=== PATIENT | female | born 1950 | race Caucasian/White ===

== ENCOUNTER 2017-07-30 12:33 | Outpatient (CLI) ==
[2017-07-30 13:05] LABS: BASOPHILS % (AUTO) 0.6 % (0.0-3.0); EOSINOPHILS # (AUTO) 0.2 K/ul (0.0-0.7); EOSINOPHILS % (AUTO) 4.5 % (0.0-7.0); HEMATOCRIT 42.2 % (37.0-47.0); HEMOGLOBIN 14.5 g/dl (12.0-16.0); IMMATURE GRANULOCYTE % (AUTO) 0.2 % (0.0-5.0); LYMPHOCYTES % (AUTO) 20.1 (10.0-50.0); MEAN CORPUSCULAR HEMOGLOBIN 31.4 pg (27.0-31.0); MEAN CORPUSCULAR HGB CONC 34.4 (31.8-35.4); MEAN CORPUSCULAR VOLUME 91.3 fl (81.0-99.0); MONOCYTES # (AUTO) 0.3 K/uL (0.4-2.0); MONOCYTES % (AUTO) 5.5 (0-10); NEUTROPHILS # (AUTO) 3.4 K/ul (2.0-6.9); NEUTROPHILS % (AUTO) 69.1; PLATELET COUNT 230 10^3/uL (140-440); RED BLOOD COUNT 4.62 10^6/ul (4.20-5.40); WHITE BLOOD COUNT 4.92 K/ul (4.6-10.2)
[2017-07-30 13:35] LABS: ALBUMIN/GLOBULIN RATIO 0.93; ANION GAP 13.1; BILIRUBIN,TOTAL 0.53 mg/dL (0.00-1.20); BUN/CREATININE RATIO 22.61; CALCIUM 9.9 mg/dL (8.2-10.2); CREATININE 0.84 mg/dL (0.60-1.30); POTASSIUM 4.1 mmol/L (3.5-5.10); TOTAL PROTEIN 8.3 g/dL (5.8-8.1)
== END 2017-07-30 12:34 | disposition home or self-care (01) ==
LOC: EDBD → LAB 12:33
PROVIDERS: ATTEND Nurse Practitioner Family
DX: Z00.00 Encounter for general adult medical examination without abnormal findings (principal)
CPT/HCPCS: 36415; 80053; 80061; 84443; 85025

== ENCOUNTER 2017-08-01 10:10 | Outpatient (CLI) ==
--- NOTE | 2017-08-04 09:14 | MAMMO ---
EXAM: Bilateral digital screening mammogram (2-D and 3-D) History: Baseline screening Findings: MLO and CC views of bilateral breasts demonstrate scattered fibroglandular breast parenchy ma. Benign bilateral breast calcifications. There are no dominant masses, no suspicious microcalcif ications and no architectural distortions. CAD was reviewed by the radiologist. Tomosynthesis was p erformed. Impression: Benign mammogram. Recommend followup routine screening mammography in 1 year. BIRADS 2
== END 2017-08-01 10:11 | disposition home or self-care (01) ==
LOC: EDBD 10:10 → RAD 10:10
PROVIDERS: ATTEND Nurse Practitioner Family
DX: Z12.31 Encounter for screening mammogram for malignant neoplasm of breast (principal)
CPT/HCPCS: 77067

== ENCOUNTER 2018-02-02 13:47 | Outpatient (CLI) | END 2018-02-02 13:48 | disposition home or self-care (01) | LOC: LAB 13:47 | PROVIDERS: ATTEND Nurse Practitioner Family | DX: E78.00 Pure hypercholesterolemia, unspecified (principal); I10 Essential (primary) hypertension | CPT/HCPCS: 36415; 80053; 80061 ==

== ENCOUNTER 2018-02-05 08:53 | Outpatient (CLI) | payer OTHER ==
--- NOTE | 2018-02-05 10:26 | CT ---
EXAM: CT scan abdomen pelvis with contrast HISTORY: Upper abdominal pain COMPARISON: None. FINDINGS: Contiguous axial images obtained through the abdomen pelvis following uneventful administr ation intravenous contrast utilizing 5-mm collimation. Sagittal and coronal reconstructions were jose l ged and reviewed.. There is minimal atelectasis at the right lung base. There has been prior cholec ystectomy. The common bile duct measures 7 mm. There is a 2 mm hypoattenuating lesion within the th ere is a 10 mm solid nodule posteriorly within the dome of the liver. Benign granulomatous changes a re seen within the spleen. The pancreas and adrenal glands have normal enhanced CT appearance. Athe rosclerotic changes are seen involving the aorta without aneurysm formation. Scarring is noted infer iorly about the right kidney.. The left kidney is seen within the right pelvis. There is diverticul osis without diverticulitis.. There is normal bladder. There is no free fluid. IMPRESSION: Status post cholecystectomy with prominent common bile duct likely on a postcholecystectomy basis. Solid nodule posteriorly within the liver which merits further evaluation.. Tiny 2 mm nodule is seen within the dome region. ASVD without aneurysm. Scarring lower pole right kidney. 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 Diverticulosis without diverticulitis
== END 2018-02-05 08:54 | disposition home or self-care (01) ==
LOC: RAD 08:53
PROVIDERS: ATTEND Nurse Practitioner Family
DX: R10.9 Unspecified abdominal pain (principal); K43.9 Ventral hernia without obstruction or gangrene

== ENCOUNTER 2018-02-23 08:14 | Outpatient (CLI) ==
--- NOTE | 2018-02-23 09:14 | US ---
EXAM: Complete abdominal ultrasound. History: Liver disease. Comparison: CT abdomen pelvis 02/05/2018 Technique: Multiple sonographic images through the abdomen were obtained. Color duplex Doppler was used to interrogate vascular flow. Findings: The liver is not enlarged. No liver lesions are identified sonographically. There is ante grade flow within the main portal vein. No abdominal ascites. Status post cholecystectomy. Common bile duct measures 0.5 cm in caliber. Visualized abdominal aorta and IVC demonstrate normal caliber. The visualized pancreas demonstrates no gross abnormality. Spleen is not enlarged. Calcified gran ulomas are seen within the spleen. Ectopic left kidney seen in the right pelvis measuring 9.4 cm in long length without evidence for hyd ronephrosis, mass or shadowing calculus. The right kidney measures 11.1 cm in long length without evidence for hydronephrosis, mass or shadowi ng calculus. Circumferential wall thickening of the bladder. Impression: 1. No focal liver lesions identified sonographically. 2. Status post cholecystectomy. 3. Ectopic left kidney seen in the pelvis with no acute findings. 4. Circumferential wall thickening of the bladder. Correlate for cystitis.
== END 2018-02-23 08:15 | disposition home or self-care (01) ==
LOC: RAD 08:14
PROVIDERS: ATTEND Nurse Practitioner Family
DX: K76.9 Liver disease, unspecified (principal); K43.9 Ventral hernia without obstruction or gangrene

== ENCOUNTER 2018-03-29 14:59 | Emergency (ER) | payer OTHER ==
[2018-03-29 15:04] VITALS: BP 173/80; TEMP 96.8; BMI 23.5
--- NOTE | 2018-03-29 15:36 | ED.PDOC ---
General ED Provider: Dr. ALEKSANDRA GAMING Chief Complaint: Urinary Problem Stated Complaint: Burning with urination:Had to leave work Friday night due to urinary symptoms which have persisted and worsened today. Time Seen by Physician: 15:15 Mode of Arrival: Walk-In Information Source: Patient Exam Limitations: No limitations Primary Care Provider: [facility] Nursing and Triage Documentation Reviewed and Agree: Yes Reviewed sepsis parameters & appropriate labs ordered?: Yes System Inflammatory Response Syndrome: Not Applicable Sepsis Protocol: For patient's 13 years and over: Temp is 96.8 and below OR 101 and greater Pulse >90 BPM Resp >20/minute Acutely Altered Mental Status Are patient's symptoms suggestive of a new infection, such as: -Pneumonia -Skin, Soft Tissue -Endocarditis -UTI -Bone, Joint Infection -Implantable Device -Acute Abdominal Infection -Wound Infection -Meningitis -Blood Stream Catheter Infection -Unknown System Inflammatory Response Syndrome: Not Applicable Complaint Exam - UTI Female Complaint/Exam Patient Complains of: Reports: Painful urination Onset/Duration: This past Friday evening. States her symptoms similar to past infections Symptoms Are: Still present Timing: Constant Initial Severity: Severe Current Severity: Moderate Location of Pain: Reports: None Associated Signs and Symptoms: Denies: Fever, Chills, Flank pain, Dyspareunia, Vaginal discharge CVA Tenderness: No Suprapubic Tenderness: Yes Differential Diagnoses: Bladder Dysfunction, Candidiasis, Cystitis, Other (UTI) Review of Systems - Review Of Systems Constitutional: Reports: No symptoms Eyes: Reports: No symptoms Ears, Nose, Mouth, Throat: Reports: No symptoms Respiratory: Reports: No symptoms Cardiac: Reports: No symptoms GI: Reports: No symptoms : Reports: No symptoms, Burning, Frequency, Urgency Musculoskeletal: Reports: No symptoms Skin: Reports: No symptoms Neurological: Reports: No symptoms Endocrine: Reports: No symptoms Hematologic/Lymphatic: Reports: No symptoms All Other Systems: Reviewed and Negative Past Medical History - Past Medical History Previously Healthy: Yes Endocrine: Reports: None Cardiovascular: Reports: Hypertension, Other (palpitations) Respiratory: Reports: Other (URI) Hematological: Reports: None Gastrointestinal: Reports: Other (hernia) Genitourinary: Reports: UTI Neuro/Psych: Reports: Anxiety Musculoskeletal: Reports: None Cancer: Reports: None Last Menstrual Period: menopause - Surgical History General Surgical History: Reports: None - Family History Family History: Reports: None - Social History Smoking Status: Former smoker Hx Substance Use: No Alcohol Screening: None Physical Exam - Physical Exam Appearance: Ill-appearing Eyes: AVI, EOMI, Conjunctiva clear ENT: Ears normal, Nose normal, Oropharynx normal Respiratory: Airway patent, Breath sounds clear, Breath sounds equal, Respirations nonlabored Cardiovascular: RRR, Pulses normal, No rub, No murmur GI/: Soft, No masses, Bowel sounds normal, No Organomegaly, Tender Musculoskeletal: Normal strength, ROM intact, No edema, No calf tenderness Skin: Warm, Dry, Normal color Neurological: Sensation intact, Motor intact, Reflexes intact, Cranial nerves intact, Alert, Oriented Psychiatric: Affect appropriate, Mood appropriate Critical Care Note - Critical Care Note Total Time (mins): 0 Course - Course Orders, Labs, Meds: Lab Review 03/29/18 15:08 Urine Color Yellow Urine Clarity Clear Urine pH 6.0 Ur Specific [place] 1.010 Urine Protein Negative Urine Glucose (UA) Negative Urine Ketones Negative Urine Blood 1+ Urine Nitrite Negative Urine Bilirubin Negative Urine Urobilinogen 0.2 Ur Leukocyte Esterase Negative Urine Microscopic RBC 2-5 Urine Microscopic WBC 0-2 Ur Squamous Epith Cells 0-2 Orders Category Date Time Status UA [URINALYSIS C & S IF INDICATED] Stat LAB 03/29/18 15:08 Completed Vital Signs: Temp Pulse Resp BP Pulse Ox 03/29/18 15:00 96.8 F L 73 16 173/80 H 98 Departure - Departure Time of Disposition: 16:00 Disposition: HOME SELF-CARE Discharge Problem: Dysuria, Cystitis Instructions: Urinary Tract Infection in Women (ED), Urinary Urgency and Frequency (DC) Condition: Good Pt referred to PMD for follow-up: Yes (1 week) IPMP verified?: No Additional Instructions: Maintain good fluid intake Take antibiotics as directed Follow up PCP 1 wk Prescriptions: Nitrofurantoin Monohyd/M-Cryst [Macrobid 100 mg Capsule] 100 mg PO BID #20 capsule Phenazopyridine HCl [Pyridium] 100 mg PO TID #20 tablet Allergies/Adverse Reactions: Allergies acetaminophen [From Lortab] Allergy (Verified 03/29/18 15:06) hydrocodone bitartrate [From Lortab] Allergy (Verified 03/29/18 15:06) Home Medications: Ambulatory Orders Diphenhydramine HCl [Benadryl] 25 mg PO PRN tab-cap 07/30/17 Acetaminophen [Tylenol] 325 mg PO ONCE PRN 01/20/18 Nitrofurantoin Monohyd/M-Cryst [Macrobid 100 mg Capsule] 100 mg PO BID #20 capsule 03/29/18 Phenazopyridine HCl [Pyridium] 100 mg PO TID #20 tablet 03/29/18 Disposition Discussed With: Patient
== END 2018-03-29 16:14 | disposition home or self-care (01) ==
LOC: ED 14:59
DX: N30.90 Cystitis, unspecified without hematuria (principal)
CPT/HCPCS: 81001; 99283

== ENCOUNTER 2018-04-07 15:14 | Outpatient (CLI) | payer OTHER | END 2018-04-07 15:15 | disposition home or self-care (01) | LOC: RHC-LAB 15:14 | PROVIDERS: ATTEND Nurse Practitioner Family | DX: R35.0 Frequency of micturition (principal); R31.9 Hematuria, unspecified | CPT/HCPCS: 81001; 87086 ==

== ENCOUNTER 2018-07-29 09:12 | Outpatient (POV) | payer OTHER | END 2018-07-29 17:00 | LOC: OUTPT 09:12 | PROVIDERS: ATTEND Otolaryngology | DX: H91.90 Unspecified hearing loss, unspecified ear (principal) ==

== ENCOUNTER 2018-08-04 08:11 | Outpatient (CLI) ==
--- NOTE | 2018-08-05 09:10 | MAMMO ---
EXAM: Digital screening mammogram with tomosynthesis HISTORY: Screening COMPARISON: 08/01/2017 FINDINGS: Digital MLO and CC views of the right and left breast were performed. Tomosynthesis was p erformed. Computer aided detection utilized. There are scattered fibroglandular densities. Benign bi lateral calcifications. There is no evidence for mass, asymmetry, distortion, or suspicious calcific ations in either breast. IMPRESSION: 1. No evidence of malignancy in the right or left breast. 2. Annual screening mammogram is recommended in one year. BIRADS category 2, benign
== END 2018-08-04 08:12 | disposition home or self-care (01) ==
LOC: RAD 08:11
PROVIDERS: ATTEND Nurse Practitioner Family
DX: Z12.31 Encounter for screening mammogram for malignant neoplasm of breast (principal)
CPT/HCPCS: 77067

== ENCOUNTER 2019-01-22 09:11 | Outpatient (CLI) | payer OTHER | END 2019-01-22 09:12 | disposition home or self-care (01) | LOC: LAB 09:11 | PROVIDERS: ATTEND Nurse Practitioner Family | DX: Z00.00 Encounter for general adult medical examination without abnormal findings (principal); I10 Essential (primary) hypertension; F41.9 Anxiety disorder, unspecified | CPT/HCPCS: 36415; 80053; 80061; 84443; 85025 ==

== ENCOUNTER 2019-02-22 09:30 | Outpatient (CLI) | END 2019-02-22 09:31 | disposition home or self-care (01) | LOC: RHC-LAB 09:30 | PROVIDERS: ATTEND Nurse Practitioner Family | DX: N17.9 Acute kidney failure, unspecified (principal); I10 Essential (primary) hypertension | CPT/HCPCS: 36415; 80053; 85025 ==

== ENCOUNTER 2019-03-10 08:24 | Outpatient (CLI) ==
--- NOTE | 2019-03-11 09:40 | US ---
EXAM: Renal ultrasound. History: Chronic kidney disease and hypertension. Technique: Multiple sonographic images through the kidneys were obtained. Color duplex Doppler was used to interrogate vascular flow. Findings: Only the left ureteral jet was seen in the bladder. Diffuse bladder wall thickening. The right kidney measures 8.8 cm in long length demonstrating normal cortical echogenicity without ev idence for hydronephrosis or shadowing calculus. A few small anechoic right renal cysts with the lar gest measuring 1 cm. Ectopic left kidney seen to the right of midline. The left kidney measures 10.4 cm in long length de monstrating normal cortical echogenicity without evidence for hydronephrosis, mass or shadowing calcu maggie. Impression: 1. No hydronephrosis. 2. Ectopic left kidney. 3. Simple right renal cysts. 4. Diffuse bladder wall thickening. Correlate for cystitis or bladder outlet obstruction.
--- NOTE | 2019-03-11 09:46 | US ---
EXAM: Renal artery duplex Doppler HISTORY: Chronic kidney disease with hypertension FINDINGS: Renal artery duplex Doppler. Aden-scale ultrasound, color Doppler imaging and spectral an alysis performed. Aortic velocity (meters per second): 0.70 Aortic diameter: 2.0 cm. IVC: Open Renal veins: Open The right kidney measured 8.8 cm and the left kidney 10.4 cm. Right renal artery peak systolic velocities (meters per second). Origin: - (Not seen secondary to superimposed gas) Mid: 0.5 Renal Hilum: 0.6 Right renal artery/Aortic Ratios: Origin: - Mid: 0.8 Renal Hilum: 1.0 Left renal artery peak systolic velocities (meters per second). Origin: 1.2 Mid: 1.1 Renal Hilum: 0.9 Left renal artery/Aortic Ratios: Origin: 2.0 Mid: 1.8 Renal Hilum: 1.5 Right renal resistive index was 1.2 Left renal resistive index was 0.8 IMPRESSION: 1. Limitations exist secondary to inability to visualize the right renal artery ostium secondary sup erimposed gas. Values presented for peak systolic velocities do not demonstrate evidence of hemodyna mically significant renal artery stenosis. 2. Values presented indicate elevated right renal resistive index at 1.2.
== END 2019-03-10 08:25 | disposition home or self-care (01) ==
LOC: RAD 08:24
PROVIDERS: ATTEND Internal Medicine
DX: N18.3 Chronic kidney disease, stage 3 (moderate) (principal); I12.9 Hypertensive chronic kidney disease with stage 1 through stage 4 chronic kidney disease, or unspecified chronic kidney disease; D63.1 Anemia in chronic kidney disease; R60.9 Edema, unspecified

== ENCOUNTER 2019-06-18 10:28 | Outpatient (CLI) ==
[2019-05-12 09:00] VITALS: BMI 25.7
--- NOTE | 2019-06-18 11:14 | DI ---
EXAM: Right ankle two view HISTORY: Joint pain COMPARISON: None FINDINGS: No fracture or dislocation. Mild osteoarthritis of the ankle with small osteophyte format ion. Ankle mortise symmetric. plantar and posterior calcaneal spurs and enthesopathy. IMPERSSION: 1. Mild osteoarthritis. 2. Calcaneal spurring
--- NOTE | 2019-06-18 11:14 | DI ---
EXAM: Left ankle two view HISTORY: Joint pain COMPARISON: None FINDINGS: No fracture or dislocation. Mild osteoarthritis of the ankle with small osteophyte format ion. Moderate plantar and posterior calcaneal spurs. No focal soft tissue abnormality. IMPERSSION: 1. Mild osteoarthritis. 2. Calcaneal spurs.
--- NOTE | 2019-06-18 11:17 | DI ---
EXAM: Right foot two view HISTORY: Joint pain COMPARISON: None FINDINGS: No fracture. Mild osteoarthritis first MTP joint with joint space narrowing. Possible kent bluxation of the third PIP joint. Mild osteoarthritis midfoot with dorsal spurring. Plantar and pos terior calcaneal spurs and enthesopathy. IMPERSSION: 1. Mild osteoarthritis 2. Possible subluxation third PIP joint. 3. Calcaneal spurring
--- NOTE | 2019-06-18 11:19 | DI ---
EXAM: Left foot two view HISTORY: Joint pain COMPARISON: None FINDINGS: No fracture or dislocation. Small cystic or erosive change at the first metatarsal head la terally. Small to moderate plantar and posterior calcaneal spurs. No focal soft tissue abnormality. IMPERSSION: 1. Small cystic or erosive change of the first metatarsal head laterally. This can be seen in gout. Other atypical arthropathies such as rheumatoid arthritis possible. 2. Calcaneal spurring
--- NOTE | 2019-06-18 11:20 | DI ---
EXAM: Right hip two-view HISTORY: Joint pain COMPARISON: None FINDINGS: No fracture or dislocation. Mild to moderate osteoarthritis right hip with joint space na rrowing osteophyte formation. Degenerative change in the spine. IMPERSSION: Mild to moderate osteoarthritis right hip.
--- NOTE | 2019-06-18 11:21 | DI ---
EXAM: Left knee, two-view HISTORY: Joint pain COMPARISON: None FINDINGS: No fracture or dislocation. Small to moderate tricompartmental osteophytes. Mild narrowi ng medial compartment. Probable chondrocalcinosis lateral compartment. No joint effusion IMPERSSION: Mild to moderate osteoarthritis. Probable chondrocalcinosis
--- NOTE | 2019-06-18 11:21 | DI ---
EXAM: Left hip two-view HISTORY: Joint pain COMPARISON: None FINDINGS: No fracture or dislocation. Mild to moderate osteoarthritis left hip with joint space gale rowing osteophyte formation. Degenerative change in the spine. No focal soft tissue abnormality. IMPERSSION: Mild to moderate osteoarthritis left hip.
--- NOTE | 2019-06-18 12:35 | DI ---
EXAM: Right knee, two-view HISTORY: Joint pain COMPARISON: None FINDINGS: No fracture or dislocation. Small tricompartmental osteophytes. Mild narrowing medial co mpartment. No joint effusion. IMPERSSION: Mild tricompartmental osteoarthritis.
--- NOTE | 2019-06-18 13:01 | DI ---
EXAM: Right wrist two view HISTORY: Joint pain COMPARISON: None FINDINGS: No fracture or dislocation. Mild narrowing of the radiocarpal articulations. Severe oste oarthritis first CMC joint with joint space narrowing osteophyte formation. Chondrocalcinosis triang ular fiber cartilage. IMPERSSION: Osteoarthritis, severe at the first CMC joint. Chondrocalcinosis.
--- NOTE | 2019-06-18 13:01 | DI ---
EXAM: Right hand two-view HISTORY: Joint pain COMPARISON: None FINDINGS: No fracture or dislocation. Mild to moderate scattered osteophytic change throughout the hand with severe osteoarthritis first CMC joint. Chondrocalcinosis triangular fibrocartilage. IMPERSSION: Osteoarthritis, severe at the first CMC joint.
--- NOTE | 2019-06-18 13:02 | DI ---
EXAM: Left wrist two view HISTORY: Joint pain COMPARISON: None FINDINGS: No fracture or dislocation. Mild narrowing radiocarpal articulations. Moderate to severe osteoarthritis first CMC joint with joint space narrowing and osteophyte formation. Chondrocalcinos is triangular fibrocartilage. IMPERSSION: Osteoarthritis, greatest at the first CMC joint. Chondrocalcinosis.
--- NOTE | 2019-06-18 13:02 | DI ---
EXAM: Left hand two-view HISTORY: Joint pain COMPARISON: None FINDINGS: No fracture or dislocation. Mild to moderate scattered osteophytic change throughout the hand with moderate to severe osteoarthritis first CMC joint. Chondrocalcinosis triangular fibrocarti leno. IMPERSSION: Osteoarthritis, greatest at the first CMC joint.
== END 2019-06-18 10:29 | disposition home or self-care (01) ==
LOC: LAB 10:28
PROVIDERS: ATTEND Internal Medicine Rheumatology
DX: R79.89 Other specified abnormal findings of blood chemistry (principal); E55.9 Vitamin D deficiency, unspecified; M32.9 Systemic lupus erythematosus, unspecified; G62.9 Polyneuropathy, unspecified; R53.83 Other fatigue; M19.90 Unspecified osteoarthritis, unspecified site; M79.10 Myalgia, unspecified site; E83.42 Hypomagnesemia; E53.8 Deficiency of other specified B group vitamins; Z13.1 Encounter for screening for diabetes mellitus
CPT/HCPCS: 36415; 81001; 82306; 82550; 82607; 82746; 83036; 83735; 84439; 84443; 84550; 85651; 85705; 86162; 86200; 86235; 86320; 86325; 86430

== ENCOUNTER 2019-07-03 08:50 | Outpatient (CLI) | payer OTHER ==
[2019-05-12 09:00] VITALS: BMI 25.7
== END 2019-07-03 08:51 | disposition home or self-care (01) ==
LOC: LAB 08:50
PROVIDERS: ATTEND Nurse Practitioner Family
DX: D70.9 Neutropenia, unspecified (principal)
CPT/HCPCS: 36415; 85025

== ENCOUNTER 2019-07-07 09:10 | Outpatient (CLI) | payer OTHER ==
[2019-05-12 09:00] VITALS: BMI 25.7
--- NOTE | 2019-07-07 21:56 | MRI ---
EXAM: Lumbar spine MRI without contrast. HISTORY: Low back pain. COMPARISON: None. TECHNIQUE: Multiplanar, multisequence MR images were acquired lumbar spine without contrast. FINDINGS: Five non-rib bearing lumbar vertebra are present. Conus medullaris ends at L2 and has nor mal morphology and signal intensity. 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 The lumbar v ertebra are normal in height, AP alignment and intrinsic bone marrow signal. There is mild accentuat ion of the usual lumbar lordosis and there is a trace retrolisthesis of L2 on L3 and 2 mm anterolisth esis of L5 on S1. Small anterior and lateral endplate osteophytes are present and there are moderate anterior and right anterolateral endplate osteophytes at L2-3 with a bright STIR signal right jeanette lateral annular fissure and acute Schmorl's node along the right posterolateral L2 inferior endplate with focal minor bright STIR signal edema along the margins. There is disc desiccation generally in the intervertebral discs from L1-2 through L5-S1 and there is mild disc space narrowing at L5-S1. There is mild central intrahepatic biliary ductal dilatation and dilatation of the common bile duct w hich tapers to the duodenum in this post cholecystectomy patient. The spleen is unremarkable. The r ight kidney is located inferolaterally in the right lower abdomen, mildly more inferiorly than is typ ical and is anteriorly and medially rotated with a small connecting band of tissue between the medial lower pole of the right kidney and the lateral upper pole of the left kidney. There is mild right p elvocaliectasis. The left kidney is located in the right paramidline pelvis and is oriented laterall y towards the right kidney. 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 Severa l descending and sigmoid colonic diverticula are present without diverticulitis. L1-2: There is a minor disc bulge that is asymmetric to the left with mild left ventrolateral bulgin g of the disc and minor endplate osteophytes. There is no central canal stenosis or foraminal stenos is. L2-3: There is a mild disc bulge that is asymmetric to the right and mild bilateral facet arthropath y and ligamentum flavum hypertrophy. There is mild left and mild to moderate right neural foraminal stenosis with encroachment on the right L2 nerve exiting the neural foramen. There is no central can al stenosis. L3-4: There is a minor spondylotic disc bulge and mild bilateral hypertrophic facet arthropathy and ligamentum flavum hypertrophy. This minimally narrows the posterior perineural fat without significa nt foraminal stenosis. There is no central canal stenosis. L4-5: There is a minor disc bulge with a small right paracentral disc protrusion that effaces the ri ght anterior subarachnoid space. Moderate bilateral facet arthropathy and ligamentum flavum hypertro phy is present. There is right lateral recess stenosis with encroachment on the right L5 nerve roots and mild to moderate right and minor left neural foraminal stenosis. There is no central canal sten osis. L5-S1: There is anterolisthesis of L5 on S1 due to severe bilateral hypertrophic facet arthropathy an d ligamentum flavum hypertrophy with small bilateral facet effusions, larger on the left. There is m ild bilateral foraminal stenosis and no central canal stenosis. IMPRESSION: 1. Mild accentuation usual lumbar lordosis with 2 mm degenerative anterolisthesis L5 on S1 due to se alex bilateral hypertrophic facet arthropathy. 2. Small right paracentral protrusion L4-5 with right lateral recess stenosis and encroachment on th e right L5 nerve roots. 3. Mild to moderate right neural foraminal stenosis L2-3 with encroachment on the right L2 nerve exi ting neural foramen and mild to moderate right L4-5 neural foraminal stenosis. 4. 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 5. Colonic diverticulosis without diverticulitis.
== END 2019-07-07 09:11 | disposition home or self-care (01) ==
LOC: RAD 09:10 → EEVIPCON 09:15
PROVIDERS: ATTEND Internal Medicine Rheumatology
DX: M54.5 Low back pain (principal)

== ENCOUNTER 2021-06-14 13:31 | Inpatient (IN) ==
--- NOTE | 2021-06-14 13:47 | ED.PDOC ---
General ED Provider: Dr. ALEKSANDRA GAMING Chief Complaint: Behavioral Complaint Stated Complaint: altered mental status; Has been angry at her neighbor, hollering at them. State she has never liked themhx renal disease Time Seen by Provider: 06/14/21 13:46 Mode of Arrival: Walk-In Information Source: Patient Primary Care Provider: JUNE OROZCO APRN, FNP- Sepsis Protocol: For patient's 13 years and over: Temp is 96.8 and below OR 101 and greater Pulse >90 BPM Resp >20/minute Acutely Altered Mental Status Are patient's symptoms suggestive of a new infection, such as: -Pneumonia -Skin, Soft Tissue -Endocarditis -UTI -Bone, Joint Infection -Implantable Device -Acute Abdominal Infection -Wound Infection -Meningitis -Blood Stream Catheter Infection -Unknown [facility] Medical History (Updated 06/15/21 @ 12:52 by ISAAK MAYS) Anemia Asthma due to seasonal allergies CAD (coronary artery disease) CKD (chronic kidney disease) stage 5, GFR less than 15 ml/min Crossed renal ectopia with fusion anomaly DDD (degenerative disc disease), lumbar Diverticulosis Enlarged heart GERD (gastroesophageal reflux disease) History of kidney injury History of recurrent UTI (urinary tract infection) History of urinary self-catheterization Hyperlipidemia Hypertension Insomnia Neurogenic bladder Renal cyst Sensorineural hearing loss (SNHL) of both ears Urinary frequency Family History Mother No problems noted. 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 Current occupational exposures/hazards: Yes Pets and animals: Yes Leisure activites: other History of recent travel: No Sexually active: No Do you think of yourself as: straight/heterosexual Current gender identity: female Seatbelt use: always Helmet use: No Drives intoxicated or rides with intoxicated yard truck driver: No Water heater temperature set < 120 degrees: Yes Working smoke detector in home: Yes Fire extinguisher in home: Yes Carbon monoxide detector in home: Yes Firearms in home: Yes Firearms unloaded and locked: Yes Surgical History (Updated 06/15/21 @ 12:45 by ISAAK MAYS) History of cholecystectomy History of colonoscopy Female Reproductive History Menstrual Age of Menarche: 13 Hx Hysterectomy: No Hx Tubal Ligation: No Date of menopause: 12/03/99 Interpretation EKG Interpretation Time of EKG #1: 13:59 Rate: Normal Rhythm: Sinus (PSVC;LVH) Course Course Hematology/Chemistry: 06/15/21 05:02 06/15/21 05:02 Orders, Labs, Meds: Lab Review 06/14/21 06/14/21 06/14/21 13:58 13:59 13:59 WBC 9.90 RBC 3.54 L Hgb 11.5 L Hct 33.7 L MCV 95.2 MCH 32.5 H MCHC 34.1 RDW Coeff of Vale 12.3 Plt Count 245 Immature Gran % (Auto) 0.4 Neut % (Auto) 80.3 H Lymph % (Auto) 11.8 [place] % (Auto) 3.9 Eos % (Auto) 3.2 Baso % (Auto) 0.4 Neut # (Auto) 7.9 H Lymph # (Auto) 1.2 [place] # (Auto) 0.4 Eos # (Auto) 0.3 Baso # (Auto) 0.0 Immature Gran # (Auto) 0.0 Sodium 123.6 L Potassium 4.57 Chloride 92.4 L Carbon Dioxide 19.5 L Anion Gap 16.27 BUN 29.3 H Creatinine 1.90 H Estimated GFR (MDRD) 26.00 BUN/Creatinine Ratio 15.42 Glucose 101.8 Calcium 10.40 H Magnesium 1.43 L Total Bilirubin 0.46 AST 40.0 H ALT 19.6 Alkaline Phosphatase 86.0 Total Creatine Kinase 201.9 H CK-MB (CK-2) 3.680 H CK-MB (CK-2) % 1.8200 Total Protein 8.47 H Albumin 4.82 Globulin 3.65 Albumin/Globulin Ratio 1.32 Urine Color Yellow Urine Clarity Clear Urine pH 5.5 Ur Specific [place] 1.010 Urine Protein 2+ H Urine Glucose (UA) Negative Urine Ketones Negative Urine Blood 2+ H Urine Nitrite Negative Urine Bilirubin Negative Urine Urobilinogen 0.2 Ur Leukocyte Esterase 2+ H Urine Microscopic RBC 10-20 Urine Microscopic WBC 50-100 Ur Squamous Epith Cells 10-20 Ur Renal Epithelial Cell 2-5 Adenovirus (PCR) B. pertussis DNA (PCR) B.parapertussis DNA PCR C. pneumoniae DNA (PCR) Coronavirus OC43 (PCR) Coronavirus HKU1 (PCR) Coronavirus 229E (PCR) Coronavirus NL63 (PCR) Human Metapneumovir PCR Influenza Type A (PCR) Influenza B (RT-PCR) M. pneumoniae (PCR) Parainfluenza 1 (PCR) Parainfluenza 2 (PCR) Parainfluenza 3 (PCR) Parainfluenza 4 (PCR) RSV (PCR) Entero/Rhino (PCR) SARS-CoV-2 (PCR) 06/14/21 14:49 WBC RBC Hgb Hct MCV MCH MCHC RDW Coeff of [place] Plt Count Immature Gran % (Auto) Neut % (Auto) Lymph % (Auto) [place] % (Auto) Eos % (Auto) Baso % (Auto) Neut # (Auto) Lymph # (Auto) [place] # (Auto) Eos # (Auto) Baso # (Auto) Immature Gran # (Auto) Sodium Potassium Chloride Carbon Dioxide Anion Gap BUN Creatinine Estimated GFR (MDRD) BUN/Creatinine Ratio Glucose Calcium Magnesium Total Bilirubin AST ALT Alkaline Phosphatase Total Creatine Kinase CK-MB (CK-2) CK-MB (CK-2) % Total Protein Albumin Globulin Albumin/Globulin Ratio Urine Color Urine Clarity Urine pH Ur Specific [place] Urine Protein Urine Glucose (UA) Urine Ketones Urine Blood Urine Nitrite Urine Bilirubin Urine Urobilinogen Ur Leukocyte Esterase Urine Microscopic RBC Urine Microscopic WBC Ur Squamous Epith Cells Ur Renal Epithelial Cell Adenovirus (PCR) Not detected B. pertussis DNA (PCR) Not detected B.parapertussis DNA PCR Not detected C. pneumoniae DNA (PCR) Not detected Coronavirus OC43 (PCR) Not detected Coronavirus HKU1 (PCR) Not detected Coronavirus 229E (PCR) Not detected Coronavirus NL63 (PCR) Not detected Human Metapneumovir PCR Not detected Influenza Type A (PCR) Not detected Influenza B (RT-PCR) Not detected M. pneumoniae (PCR) Not detected Parainfluenza 1 (PCR) Not detected Parainfluenza 2 (PCR) Not detected Parainfluenza 3 (PCR) Not detected Parainfluenza 4 (PCR) Not detected RSV (PCR) Not detected Entero/Rhino (PCR) Not detected SARS-CoV-2 (PCR) Not detected Orders Category Date Time Status EKG-(ED ONLY) Stat CARDIO 06/14/21 13:47 Completed IV [ED IV/MEDIPORT/POWERPORT] .ONCE EMERGENCY 06/14/21 15:37 Completed CBC W/ AUTO DIFF Stat LAB 06/14/21 13:59 Completed CMP [COMPREHENSIVE METABOLIC PANEL] Stat LAB 06/14/21 13:59 Completed CPK [CREATINE KINASE] Stat LAB 06/14/21 13:59 Completed MAGNESIUM Stat LAB 06/14/21 13:59 Completed RESPIRATORY PANEL 2.1 (PCR) Stat LAB 06/14/21 14:49 Completed UA [URINALYSIS C & S IF INDICATED] Stat LAB 06/14/21 13:58 Completed URINE CULTURE Stat LAB 06/14/21 13:58 Completed 0.9 % Sodium Chloride [Saline Flush] MEDS 06/14/21 15:37 Discontinued 1 syr IVF PRN PRN Sodium Chloride 0.9% [Sodium Chloride] 1,000 ml MEDS 06/14/21 16:00 Discontinued IV 125 mls/hr Medications Discontinued Medications Generic Name Dose Route Start Last Admin Trade Name Freq PRN Reason Stop Dose Admin Allopurinol 100 mg 06/14/21 18:30 06/15/21 09:44 Allopurinol 100 Mg Tablet PO 100 mg DAILY CHUNG Administration Cholecalciferol 1,000 unit 06/14/21 18:30 06/15/21 09:43 Cholecalciferol (Vitamin D3) 1,000 Unit (25 Mcg) Tablet PO 1,000 unit DAILY CHUNG Administration Clonidine 0.1 mg 06/14/21 17:05 06/14/21 17:08 Clonidine Hcl 0.1 Mg Tablet PO 06/14/21 17:06 0.1 mg ONCE STA Administration Ferrous Sulfate 324 mg 06/16/21 09:00 Ferrous Sulfate 324 Mg Tablet.Dr PO EVERY OTHER DAY CHUNG Fluoxetine HCl 10 mg 06/14/21 18:30 06/15/21 09:27 Fluoxetine Hcl 10 Mg Capsule PO Not Given DAILY CHUNG Furosemide 40 mg 06/14/21 18:28 Furosemide 40 Mg Tablet PO DAILY PRN LEG SWELLING Hydroxyzine HCl 25 mg 06/14/21 21:00 06/14/21 20:40 Hydroxyzine Hcl 25 Mg Tablet PO 25 mg BEDTIME CHUNG Administration Sodium Chloride 1,000 mls @ 125 mls/hr 06/14/21 16:00 06/15/21 13:16 Sodium Chloride IV Not Given .Q8H CHUNG CEFTRIAXONE/D5W 1 GM PREMIX 1 gm in 50 mls @ 75 mls/hr 06/14/21 18:30 06/14/21 18:35 Rocephin 1 Gm/50 Ml D5w IV 06/17/21 18:29 75 mls/hr BEDTIME CHUNG Administration CEFTRIAXONE/D5W 1 GM PREMIX 1 gm in 50 mls @ 75 mls/hr 06/15/21 09:00 06/15/21 09:45 Rocephin 1 Gm/50 Ml D5w IV 06/17/21 18:29 75 mls/hr DAILY CHUNG Administration Montelukast Sodium 10 mg 06/15/21 09:00 06/15/21 09:44 Montelukast Sodium 10 Mg Tablet PO 10 mg DAILY CHUNG Administration Nitrofurantoin Macrocrystals 50 mg 06/15/21 21:00 Nitrofurantoin Macrocrystal 50 Mg Capsule PO 06/18/21 20:59 BEDTIME CHUNG Non-Formulary Medication 0.05 percent 06/14/21 18:30 06/15/21 09:47 Azelastine EACHEYE Not Given BID CHUNG Non-Formulary Medication 0.25 mcg 06/15/21 09:00 06/15/21 09:46 Calcitriol PO Not Given DAILY CHUNG Omeprazole 20 mg 06/15/21 07:30 06/15/21 09:44 Omeprazole 20 Mg Capsule.Dr PO 20 mg QDAC CHUNG Administration Sodium Chloride 1 syr 06/14/21 15:37 0.9% Sodium Chloride 10 Ml Disp.Syrin IVF PRN PRN To flush IV Valsartan 40 mg 06/15/21 09:00 06/15/21 09:44 Valsartan 80 Mg Tablet PO 40 mg DAILY CHUNG Administration Valsartan 80 mg 06/15/21 09:00 06/15/21 09:44 Valsartan 80 Mg Tablet PO 80 mg DAILY CHUNG Administration Valsartan 120 mg 06/16/21 09:00 Valsartan 80 Mg Tablet PO DAILY CHUNG Vital Signs: Temp Pulse Resp BP Pulse Ox 06/14/21 13:33 97.2 F L 73 18 186/84 H 96 Discharge Plan Discharge Patient Disposition: ADMITTED INPATIENT Discharge Problem: Urinary tract infection, History of kidney injury, Hyponatremia ED Provider: ALEKSANDRA GAMING Condition: Fair Physician Progress Note: []
[2021-06-14 14:09] LABS: BASOPHILS % (AUTO) 0.4 % (0.0-3.0); EOSINOPHILS # (AUTO) 0.3 K/ul (0.0-0.7); EOSINOPHILS % (AUTO) 3.2 % (0.0-7.0); HEMATOCRIT 33.7 % (37.0-47.0); HEMOGLOBIN 11.5 g/dl (12.0-16.0); IMMATURE GRANULOCYTE % (AUTO) 0.4 % (0.0-5.0); LYMPHOCYTES # (AUTO) 1.2 K/uL (0.60-3.4); LYMPHOCYTES % (AUTO) 11.8 (10.0-50.0); MEAN CORPUSCULAR HEMOGLOBIN 32.5 pg (27.0-31.0); MEAN CORPUSCULAR HGB CONC 34.1 (31.8-35.4); MEAN CORPUSCULAR VOLUME 95.2 fl (81.0-99.0); MONOCYTES # (AUTO) 0.4 K/uL (0.4-2.0); MONOCYTES % (AUTO) 3.9 (0-10); NEUTROPHILS # (AUTO) 7.9 K/ul (2.0-6.9); NEUTROPHILS % (AUTO) 80.3 % (42.2-75.2); PLATELET COUNT 245 10^3/uL (140-440); RDW COEFFICIENT OF VARIATION 12.3 % (11.6-14.8); RED BLOOD COUNT 3.54 10^6/ul (4.20-5.40)
[2021-06-14 14:11] LABS: BILIRUBIN,URINE Negative (NEGATIVE); CLARITY,URINE Clear (CLEAR); COLOR,URINE Yellow (YELLOW); GLUCOSE, URINE (UA) Negative (NEGATIVE); KETONES,URINE Negative (NEGATIVE); LEUKOCYTE ESTERASE ,URINE 2+ (NEGATIVE); NITRITE,URINE Negative (NEGATIVE); PH,URINE 5.5 (5-9); PROTEIN,URINE 2+ (NEGATIVE); URINE, BLOOD 2+ (NEGATIVE); UROBILINOGEN,URINE 0.2 (0.2)
[2021-06-14 14:15] LABS: URINE WBC, MICROSCOPIC 50-100 (0-2)
[2021-06-14 14:16] LABS: ALANINE AMINOTRANSFERASE 19.6 U/L (0-35); ALBUMIN 4.82 g/dL (3.5-5.0); BILIRUBIN,TOTAL 0.46 mg/dL (0.2-1.3); BLOOD UREA NITROGEN 29.3 mg/dL (7-17); CALCIUM 10.4 mg/dL (8.4-10.2); CARBON DIOXIDE 19.5 mmol/L (22-30.0); CHLORIDE 92.4 mmol/L (98-107); CREATINE KINASE 201.9 U/L (30-135); CREATININE 1.9 mg/dL (0.60-1.30); GLUCOSE 101.8 mg/dL (74-106); MAGNESIUM 1.43 mg/dL (1.6-2.3); POTASSIUM 4.57 mmol/L (3.5-5.1); SODIUM 123.6 mmol/L (134.5-145); TOTAL PROTEIN 8.47 g/dL (6.3-8.2)
[2021-06-14 14:31] LABS: CREATINE KINASE MB 3.68 ng/ml (0.0-2.38)
[2021-06-14 15:01] LABS: BORDETELLA PARAPERTUSSIS (PCR) NOT DETECTED (NOT DETECT); BORDETELLA PERTUSSIS (PCR) NOT DETECTED (NOT DETECT); CHLAMYDIA PNEUMONIAE (PCR) NOT DETECTED (NOT DETECT); CORONAVIRUS 229E (PCR) NOT DETECTED (NOT DETECT); CORONAVIRUS HKU1 (PCR) NOT DETECTED (NOT DETECT); CORONAVIRUS NL63 (PCR) NOT DETECTED (NOT DETECT); CORONAVIRUS OC43 (PCR) NOT DETECTED (NOT DETECT); HUMAN METAPNEUMOVIRUS (PCR) NOT DETECTED (NOT DETECT); HUMAN RHINOVIRUS/ENTEROV (PCR) NOT DETECTED (NOT DETECT); INFLUENZA B (PCR) NOT DETECTED (NOT DETECT); MYCOPLASMA PNEUMONIAE (PCR) NOT DETECTED (NOT DETECT); PARAINFLUENZA VIRUS 1 (PCR) NOT DETECTED (NOT DETECT); PARAINFLUENZA VIRUS 2 (PCR) NOT DETECTED (NOT DETECT); PARAINFLUENZA VIRUS 3 (PCR) NOT DETECTED (NOT DETECT); PARAINFLUENZA VIRUS 4 (PCR) NOT DETECTED (NOT DETECT); RESPIRATORY SYNCYTIAL V (PCR) NOT DETECTED (NOT DETECT); SARS_COV_2 (PCR) NOT DETECTED (NOT DETECT)
[2021-06-14 15:48] LABS: ADENOVIRUS (PCR) NOT DETECTED (NOT DETECT)
[2021-06-14] MEDS: SODIUM CHLORIDE 1,000 ML IV SCH (15:56)
[2021-06-14] MEDS ORDERED: SODIUM CHLORIDE 1,000 ML IV SCH (16:00)
[2021-06-14] MEDS ORDERED: CATAPRES PO STA (17:05)
[2021-06-14 18:04] VITALS: BMI 32.5
[2021-06-14] MEDS ORDERED: LASIX TAB PO PRN (18:28)
[2021-06-14] MEDS ORDERED: ROCEPHIN 1 GM/50 ML D5W 1 GM/50 ML BAG IV SCH (18:30)
[2021-06-14] MEDS: VITAMIN D PO SCH (18:59)
[2021-06-14] MEDS: ZYLOPRIM PO SCH (18:59)
[2021-06-14] MEDS: AZELASTINE EACHEYE SCH ×2 (18:59→20:33)
[2021-06-14] MEDS: PROZAC PO SCH (18:59)
[2021-06-14] MEDS ORDERED: ATARAX PO SCH (21:00)
[2021-06-15] MEDS: SODIUM CHLORIDE 1,000 ML IV SCH ×2 (00:48→13:16)
[2021-06-15 05:30] LABS: BASOPHILS % (AUTO) 0.7 % (0.0-3.0); EOSINOPHILS # (AUTO) 0.4 K/ul (0.0-0.7); EOSINOPHILS % (AUTO) 7.7 % (0.0-7.0); HEMATOCRIT 31.2 % (37.0-47.0); HEMOGLOBIN 10.5 g/dl (12.0-16.0); IMMATURE GRANULOCYTE % (AUTO) 0.5 % (0.0-5.0); LYMPHOCYTES # (AUTO) 1.2 K/uL (0.60-3.4); LYMPHOCYTES % (AUTO) 21.5 (10.0-50.0); MEAN CORPUSCULAR HEMOGLOBIN 32.3 pg (27.0-31.0); MEAN CORPUSCULAR HGB CONC 33.7 (31.8-35.4); MONOCYTES # (AUTO) 0.4 K/uL (0.4-2.0); MONOCYTES % (AUTO) 6.4 (0-10); NEUTROPHILS # (AUTO) 3.5 K/ul (2.0-6.9); NEUTROPHILS % (AUTO) 63.2 % (42.2-75.2); PLATELET COUNT 220 10^3/uL (140-440); RDW COEFFICIENT OF VARIATION 12.2 % (11.6-14.8); RED BLOOD COUNT 3.25 10^6/ul (4.20-5.40); WHITE BLOOD COUNT 5.48 K/ul (4.6-10.2)
[2021-06-15 05:44] VITALS: BP 112/65; TEMP 97.6
[2021-06-15 05:44] LABS: ALANINE AMINOTRANSFERASE 15.2 U/L (0-35); ALBUMIN 3.93 g/dL (3.5-5.0); ALKALINE PHOSPHATASE 70.5 U/L (53-141); ASPARTATE AMINO TRANSFERASE 32.7 U/L (14-36); BILIRUBIN,TOTAL 0.34 mg/dL (0.2-1.3); CALCIUM 9.66 mg/dL (8.4-10.2); CARBON DIOXIDE 20.8 mmol/L (22-30.0); CHLORIDE 100.4 mmol/L (98-107); CREATININE 1.79 mg/dL (0.60-1.30); GLUCOSE 93.8 mg/dL (74-106); POTASSIUM 4.24 mmol/L (3.5-5.1); SODIUM 129.6 mmol/L (134.5-145); TOTAL PROTEIN 6.86 g/dL (6.3-8.2)
[2021-06-15] MEDS ORDERED: PRILOSEC PO SCH (07:30)
[2021-06-15] MEDS ORDERED: ROCEPHIN 1 GM/50 ML D5W 1 GM/50 ML BAG IV SCH (09:00)
[2021-06-15] MEDS ORDERED: CALCITRIOL 0.25 MCG PO SCH (09:00)
[2021-06-15] MEDS ORDERED: DIOVAN PO SCH ×2 (09:00)
[2021-06-15] MEDS ORDERED: SINGULAIR PO SCH (09:00)
[2021-06-15] MEDS: PROZAC PO SCH (09:27)
[2021-06-15] MEDS: VITAMIN D PO SCH (09:43)
[2021-06-15] MEDS: ZYLOPRIM PO SCH (09:44)
[2021-06-15] MEDS: AZELASTINE EACHEYE SCH (09:47)
[2021-06-15] MEDS ORDERED: MACRODANTIN PO SCH (21:00)
[2021-06-16] MEDS ORDERED: FERROUS SULFATE PO SCH (09:00)
[2021-06-16] MEDS ORDERED: DIOVAN PO SCH (09:00)
--- NOTE | 2021-06-16 20:39 | PCM.DC ---
Final Diagnosis: Acute hyponatremia - resolved. Altered mental status - resolved. UTI. Reason for Hospitalization: Patient became somewhat confused at home. Presented to ER and w/u revealed sodium of 123 and UTI. Admitted for tx. Prognosis at Discharge: Good. Condition at Discharge: Stable. Medications at Discharge: Ambulatory Orders Medication Instructions Recorded azelastine 0.05 % eye drops 0.05 percent BOTHEYES 1 gtt in 11/10/18 eye(s) BID #1 drp allopurinol 100 mg tablet 100 mg PO QDAY 04/23/21 calcitriol 0.25 mcg capsule 0.25 mcg PO DAILY 06/14/21 ferrous sulfate 325 mg (65 mg 325 mg PO EVERY OTHER DAY 06/14/21 iron) tablet furosemide 40 mg tablet 40 mg PO DAILY PRN 06/14/21 hydroxyzine HCl 25 mg tablet 25 mg PO BEDTIME 06/14/21 montelukast 10 mg tablet 10 mg PO DAILY 06/14/21 omeprazole 20 mg capsule,delayed 20 mg PO DAILY 06/14/21 release valsartan 40 mg tablet 40 mg PO DAILY 06/14/21 valsartan 80 mg tablet 80 mg PO DAILY 06/14/21 bupropion HCl 150 mg 24 hr tablet, 150 mg PO QAM #30 tab 06/15/21 extended release (Wellbutrin XL) cefuroxime axetil 250 mg tablet 250 mg PO BID 7 Days #14 tab 06/15/21 nitrofurantoin macrocrystal 50 mg 50 mg PO BEDTIME 06/15/21 capsule Lab/Diagnostics: Na 123, next day 129. UTI. Mag. 1.4 Refer to chart for full labs and tests. Education Provided to Patient and Family: Hyponatremia. UTI. Follow-ups: PCP in 3 days. Discharge Disposition: Home Hospital Course: Patient of [employer] Crumble. Tx for low sodium was slow infusion of hypertonic saline. Na 129 at d/c and patient felt fine. All confusion resolved and she wanted discharged. Most common source of low sodium in elderly patients is SIADH. This patient was also taking intermittent lasix, which can lower sodium, along with K and Mg. Also, she had been on prozac for about a month and SSRI med's, particularly prozac, are known to lower sodium. So, prozac stopped and wellbutrin started (for depression) pending F/U. She was advised to take lasix as little as possible (for pedal edema) and to take OTC Mag Ox 400 mg daily and the Rx potassium daily. Rocephin given here for UTI, then Rx ceftin. She had been on low-dose macrodantin as preventative. She is prone to UTI's because she has to self-cath due to a neurogenic bladder. Hold the macrobid while on ceftin, culture pending. Plan: Home with Rx of wellbutrin to replace prozac, and ceftin for UTI. Rec. OTC mag ox. F/U with PCP 3 days.
== END 2021-06-15 12:32 | disposition home or self-care (01) | DRG 948 ==
LOC: ED 13:31 → MEDSURG A 16:35
PROVIDERS: ADMIT Emergency Medicine; ATTEND Emergency Medicine
DX: E87.1 Hypo-osmolality and hyponatremia; Z87.828 Personal history of other (healed) physical injury and trauma; Z20.822 Contact with and (suspected) exposure to COVID-19; R41.82 Altered mental status, unspecified